=== PATIENT | female | born 1955 | race Caucasian/White ===

== ENCOUNTER 2018-07-29 20:57 | Emergency (ER) | payer MEDICARE ==
[2018-07-29 22:07] LABS: BASO % 0.4 % (0.0-1.0); EOS % 0.6 % (0.0-3.0); HEMATOCRIT 45.7 % (36.0-47.0); HEMOGLOBIN 14.9 g/dl (12.0-15.5); IMMATURE GRANULOCYTE % 0.2 % (0-3.0); LYMPH % 19.8 % (24.0-44.0); MEAN CORPUSCULAR HEMOGLOBIN 29.2 pg (27.0-33.0); MEAN CORPUSCULAR HGB CONC 32.6 g/dl (32.0-36.5); MEAN CORPUSCULAR VOLUME 89.4 fl (80.0-96.0); MONO # 0.7 10^3/uL (0.0-0.8); MONO % 13.1 % (0.0-5.0); NEUTROPHILS # 3.4 10^3/uL (1.8-7.7); NEUTROPHILS % 65.9 % (36.0-66.0); PLATELET COUNT, AUTOMATED 172 10^3/uL (150-450); RED BLOOD COUNT 5.11 10^6/uL (4.00-5.40); RED CELL DISTRIBUTION WIDTH 13.4 % (11.5-14.5); WHITE BLOOD COUNT 5.2 10^3/uL (4.0-10.0)
[2018-07-29 22:11] LABS: INR 0.96; PROTHROMBIN TIME 12.9 SECONDS (12.1-14.4)
[2018-07-29 22:25] LABS: ANION GAP 8 MEQ/L (8-16); BLOOD UREA NITROGEN 22 MG/DL (7-18); CALCIUM LEVEL 8.5 MG/DL (8.8-10.2); CARBON DIOXIDE LEVEL 29 MEQ/L (21-32); CHLORIDE LEVEL 105 MEQ/L (98-107); CK-MB VALUE MASS < 1.0 NG/ML (<3.6); CPK CREATINE PHOSPHOKINASE 77 U/L (26-192); CREATININE FOR GFR 1.44 MG/DL (0.55-1.30); GLOMERULAR FILTRATION RATE 38.9 (>45); GLUCOSE, FASTING 112 MG/DL (70-100); SODIUM LEVEL 142 MEQ/L (136-145); TROPONIN I < 0.02 NG/ML (< 0.10)
[2018-07-29] MEDS: MORPHINE 2 MG/ML 1ML SYRINGE (J2270) IV (22:30)
[2018-07-29] MEDS: NS 500 ML IV (22:30)
[2018-07-29] MEDS ORDERED: ISOVUE-370 76% 100ML VIAL (Q9967) As Ordered (23:15)
[2018-07-30 02:54] LABS: CK-MB VALUE MASS < 1.0 NG/ML (<3.6); CPK CREATINE PHOSPHOKINASE 68 U/L (26-192); MB/CK RELATIVE INDEX 1.47 (< OR =4); TROPONIN I < 0.02 NG/ML (< 0.10)
[2018-07-30] MEDS: traMADol 50 MG TAB (BULK 4 TAB ED) PO (03:45)
== END 2018-07-30 03:17 | disposition home or self-care (01) ==
LOC: M ED 07-30 03:17
DX: R07.1 Chest pain on breathing (principal); I10 Essential (primary) hypertension; I25.10 Atherosclerotic heart disease of native coronary artery without angina pectoris; E78.5 Hyperlipidemia, unspecified; G89.29 Other chronic pain; M79.661 Pain in right lower leg; Z95.5 Presence of coronary angioplasty implant and graft; Z79.899 Other long term (current) drug therapy; Z79.82 Long term (current) use of aspirin; Z88.0 Allergy status to penicillin; Z88.1 Allergy status to other antibiotic agents
CPT/HCPCS: Q9967

== ENCOUNTER → 2018-09-12 | Outpatient (CLI) | payer MEDICARE ==
[~2018-09-12] MED LIST: ASPI-156 PO; ATOR1TAB19 PO; CENT1TAB PO; E-Z-GAS II EFFERVESCENT PACKET (SODIUM BICARB./CITRIC ACID/SIMETHICONE) As Ordered ONE; E-Z-HD 98% w/w 340GM SUSP BTL As Ordered ONE; E-Z-PAQUE 96% w/w SUSP 176GM BTL As Ordered ONE; KLOR10TA76 PO; METO1TAB87 PO; PLAV1TAB2 PO; TORS20TA2 PO
--- NOTE | 2018-09-12 16:38 | REP ---
Esophagram The procedure was performed under the direct supervision of Dr. Kenyon. The images were reviewed with Dr. Kenyon. A single view PA chest x-ray is submitted as a client service representative film. The superior mediastinal structures are midline. The heart size is within normal limits. The lungs are clear. Liquid barium and gas producing granules were given in the erect position as well as liquid barium in the prone oblique positions in order to perform a double contrast esophagram examination. The oral and pharyngeal stages of deglutition are unremarkable. Esophageal transport is prompt and efficient. There is mucosal irregularity in the distal esophagus which likely represents reflux esophagitis. There is no dany ulcer identified. There is a sliding type hiatal hernia. There is gastroesophageal reflux demonstrated to the level of the thoracic inlet. Impression: 1. There is a sliding type hiatal hernia. There is gastroesophageal reflux demonstrated to the level of the thoracic inlet. 2. There is mucosal irregularity in the distal esophagus which likely represents reflux esophagitis. There is no dany ulcer identified. 0.8 minutes of fluoro time was utilized for this procedure. Reviewed by MECHE Humphries 09/12/2018 04:04 P Electronically Signed by Warren Kenyon MD 09/12/2018 04:28 P
== END ==
LOC: M RAD 10:25
PROVIDERS: ATTEND Family Medicine
DX: K44.9 Diaphragmatic hernia without obstruction or gangrene (principal); R93.3 Abnormal findings on diagnostic imaging of other parts of digestive tract; R13.10 Dysphagia, unspecified; K21.9 Gastro-esophageal reflux disease without esophagitis

== ENCOUNTER 2019-02-28 10:01 | Outpatient (RCR) | payer MEDICARE | END 2019-03-02 | disposition home or self-care (01) | LOC: M PT 10:01 | PROVIDERS: ATTEND Family Medicine | DX: R26.81 Unsteadiness on feet (principal) ==

== ENCOUNTER → 2019-02-28 | Outpatient (CLI) | payer MEDICARE ==
[~2019-02-28] MED LIST changes: -ASPI-156 PO; +ASPI81TA28 PO; -E-Z-GAS II EFFERVESCENT PACKET (SODIUM BICARB./CITRIC ACID/SIMETHICONE) As Ordered ONE; -E-Z-HD 98% w/w 340GM SUSP BTL As Ordered ONE; -E-Z-PAQUE 96% w/w SUSP 176GM BTL As Ordered ONE
--- NOTE | 2019-02-28 11:33 | REP ---
Clinical: Preoperative assessment . Comparison: None . Technique: PA and lateral. Findings: The mediastinum and cardiac silhouette are normal. The lung liriano are clear and without acute consolidation, effusion, or pneumothorax. The skeletal structures are intact and normal. Impression: 1. No acute cardiopulmonary process. Electronically Signed by Bereket Mora MD 02/28/2019 11:25 A
== END ==
LOC: M RAD 11:02
PROVIDERS: ATTEND Physician Assistant
DX: Z95.5 Presence of coronary angioplasty implant and graft (principal); I25.10 Atherosclerotic heart disease of native coronary artery without angina pectoris

== ENCOUNTER → 2019-03-18 | Outpatient (CLI) | payer MEDICARE | LOC: M LAB 11:42 | PROVIDERS: ATTEND Physician Assistant | DX: R06.02 Shortness of breath (principal) ==

== ENCOUNTER 2019-03-21 10:51 | Outpatient (RCR) | payer MEDICARE | END 2019-04-02 | LOC: M PT 10:51 | PROVIDERS: ATTEND Family Medicine | DX: Z51.89 Encounter for other specified aftercare (principal); R26.81 Unsteadiness on feet ==

== ENCOUNTER → 2019-04-07 | Outpatient (CLI) | payer MEDICARE ==
--- NOTE | 2019-04-14 10:08 | SLEEPHOME ---
DATE OF STUDY: 04/07/2019 ORDERED BY: Dr. Méndez Diagnostic home sleep testing was performed due to concern for the obstructive sleep apnea syndrome. For testing, a nocturnal T3 respiratory monitoring device was used. Continuous record was made of pulse, oxygen saturation airflow, chest and abdominal strain and body position. 10 hours and 59 minutes of data were reviewed. There were 7 hours and 42 minutes marked as time in bed. During the interval marked time in bed, there were 65 respiratory events identified of 10 seconds in duration or greater for a respiratory event index of 8.4. The events were primarily obstructive. Baseline pulse rate was 61 beats per minute, pulse rate ranged 53-70. Baseline saturation 93% and saturations fell to 83%. Testing was performed in both the supine and nonsupine positions. IMPRESSION: Abnormal home sleep testing with repetitive respiratory events and oxygen desaturations to 83% with a respiratory event index of 8.4 is consistent with the obstructive sleep apnea syndrome. RECOMMENDATION: The patient should be encouraged to undergo formal sleep evaluation.
== END ==
LOC: M SLEEP HO 10:04
PROVIDERS: ATTEND Internal Medicine Cardiovascular Disease
DX: R06.83 Snoring (principal)

== ENCOUNTER → 2019-04-15 | Outpatient (CLI) | payer MEDICARE ==
[~2019-04-15] MED LIST changes: +ANAS1TAB2 PO; +ASPI-261 PO; +ATOR1TAB21 PO; +CALC600T5 PO; +OMEP-221 PO
--- NOTE | 2019-04-17 08:30 | RADONC ---
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 STAGE: Stage TIS, N0, M0. ICD-10 CODE: D05.82. ECOG PERFORMANCE STATUS: 0. HISTORY OF PRESENT ILLNESS: The patient is a 63-year-old female who had been receiving regular mammographies up to approximately 10 to 11 years ago. The new mammogram obtained on 02/19/2019 revealed an abnormality at the 3 o'clock position of the left breast. The mammogram was followed with ultrasound and the tumor measured approximately 1 cm. On 03/24/2019 she underwent a lumpectomy in [place] by Dr. Claudette Linares. She also sampled two sentinel lymph nodes, which were negative for tumor. The tumor was noted to be a grade 3 DCIS with a cribriform pattern. It was located at the 3 o'clock position. It looked similar to the biopsy which was performed on 03/13/2019. The tumor was multifocal with an aggregate measured approximately 20 mm. The two sentinel lymph nodes evaluated were negative for metastatic disease as stated, and the primary tumor was noted to be ER positive, TX positive. Necrosis was present in one small focus and involved only once cell. The patient had some bruising from the initial biopsy and has had issues with seromas forming in the lumpectomy area. She seems fine with regards to her mastectomy healing at this time, however. She comes to us today to discuss adjuvant local regional radiotherapy. PAST MEDICAL HEALTH: She has a history of bilateral feet swelling and is on diuretics. She also has history of GERD and cardiac arterial stent placement. She has a history of psoriasis and shortness of breath. PAST SURGICAL HISTORY: section, coronary angioplasty with stent placement in 2006, partial mastectomy (see HPI), partial axillary lymphadenectomy in the past and tonsillectomy. FAMILY HISTORY OF CANCER: No remarkable family history of cancer. MEDICATIONS: - aspirin 325 mg - Atrovent statin 20 mg daily - calcium carbonate daily - metoprolol 25 mg b.i.d. - multiple vitamins - omeprazole 40 mg by mouth nightly - potassium chloride 20 mEq by mouth two times a day SOCIAL HISTORY: She is a former smoker and has a 43 pack-year history. She quit in 2017. She drinks only minimally. REVIEW OF SYSTEMS: Respiratory: The patient denies coughing, dyspnea, hemoptysis, hiccups, pleuritic or chest pain. Psychiatric: Denies delusions, hallucinations, mood swings. Neck: Denies masses, muscle weakness, pain, difficulty with range of motion, or swelling. Integumentary: She has a history of psoriasis but denies alopecia, blisters, bruising, dry skin, facial burning, problems with nails, photosensitivity, pruritus, rashes with the exception of the psoriasis or urticaria. Hematologic/lymphatic: Denies easy bruising or lymphadenopathy. Genitourinary: Denies dysuria, frequency, genital masses, hematuria, incontinence, nocturia, renal stone disease, sexual dysfunction, urgency, changes in urine color, vaginal discharge or bleeding or vaginal spotting. Gastrointestinal: Denies changes in bowel habits, constipation, diarrhea, heartburn, dyspepsia, hematemesis, hematochezia, hemorrhoids, melena, gastrointestinal bleeding, nausea, pain, cramping, early satiety or vomiting. ENT: Denies ear pain, epistaxis, esophagitis hearing loss, dry mouth, oral bleeding otitis, sinusitis, sputum production, stomatitis, alteration of taste, tinnitus. Constitutional: She has a fair appetite. Denies significant fatigue, fever. She has some off and on lethargy, but denies malaise, night sweats, rigors, chills or significant weight change. Cardiovascular: Denies significant arrhythmias, chest pain. She has occasional dyspnea. She has also edema in her lower extremities. Denies orthopnea or palpitation. Breasts: She has a history of recent partial mastectomy involving the left at the 3 o'clock position. Denies nipple inversion, pain, nipple discharge. ALLERGIES: Denies allergies or adverse reactions. PHYSICAL EXAMINATION: Vitals: O2 saturation 97% on room air. Diastolic 84, systolic 133, respirations 20, pulse 64, temperature 96.8, weight 253.4 pounds, height 60 inches. HEENT: Normocephalic. EOMs intact. PERRLA. Fundi benign. Breasts: Pendulous with no palpable masses. Lymphatics: No palpable peripheral lymphadenopathy is noted in the cervical, supraclavicular, axillary or inguinal lymph node chains. She is status post axillary sampling. Heart: Regular with a grade 2/6 systolic ejection murmur heard best at the cardiac apex. Abdomen: Without evidence of hepatomegaly, masses, deep abdominal tenderness. Extremities: Without cyanosis, significant digital clubbing or edema. Neurologic: Examination grossly physiologic and nonfocal. 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 The tumor measured an aggregate more than 20 mm and consisted of a high-grade (grade III) DCIS with a cribriform pattern and one focal cell showing necrosis. The tumor was ER and TX positive. Two sentinel lymph nodes were examined, which were negative for metastatic disease. PLAN OF RADIOTHERAPY: The patient is a candidate for adjuvant external beam radiotherapy to consist of approximately 5000 cGy to the entire breast followed by a 1000 cGy boost to the lumpectomy scar site via an energetic electron beam. Prior to treatment delivery, localization will be accomplished upon a CT simulator and treatment portals defined by the use of multiple leaf collimators. The indications, possible side effects, both acute and chronic, have been thoroughly discussed with the patient in detail. She understands and is willing to proceed as outlined. Simulation was ordered and consent obtained. Thank you for allowing us the opportunity of participation in the management of this very fine patient. Most sincerely, CC: MD Dr. Jessica Lamb Med Onc MD ANTOINE Weeks
== END ==
LOC: M ONCR 08:42
PROVIDERS: ATTEND Radiology Radiation Oncology
DX: C50.912 Malignant neoplasm of unspecified site of left female breast (principal)

== ENCOUNTER 2019-05-02 12:48 | Outpatient (RCR) | payer MEDICARE ==
[2019-04-18 14:56] LABS: HEMATOCRIT 44.6 % (36.0-47.0); HEMOGLOBIN 14.2 g/dl (12.0-15.5); LYMPH % 25.2 % (24.0-44.0); MEAN CORPUSCULAR HEMOGLOBIN 28.1 pg (27.0-33.0); MEAN CORPUSCULAR HGB CONC 31.8 g/dl (32.0-36.5); MEAN CORPUSCULAR VOLUME 88.1 fl (80.0-96.0); NEUTROPHILS # 4.5 10^3/uL (1.8-7.7); NEUTROPHILS % 64.6 % (36.0-66.0); RED BLOOD COUNT 5.06 10^6/uL (4.00-5.40)
--- NOTE | 2019-04-23 09:09 | RADONC ---
RADIATION ONCOLOGY SIMULATION NOTE DATE: 04/18/2019 CHART NUMBER: [id number] SIMULATION NOTE: The patient has a history of left breast cancer and comes today for evaluation of local regional radiotherapy simulation to treat her left breast via breast conservation radiotherapy technique. The patient was placed in a supine position and an immobilization device was fabricated in order to minimize motion during treatment. She tolerated the making of the immobilization device quite well with no significant untoward side effects. Thereafter, the patient in the treatment position underwent imaging through the breast area at 3 mm intervals and the images were captured for future contouring of both planned treatment volume as well as normal surrounding organs within the thorax so that we might be able to adequately plan this treatment most likely for IMRT. I was there during the entire course of the simulation. She tolerated the entire procedure and she was able to return to her place of residence after the completion of the simulation process.
[2019-06-02] MEDS ORDERED: SILV40CR EXT (10:32)
== END 2019-05-03 ==
LOC: M ONCR 12:48
PROVIDERS: ATTEND Radiology Radiation Oncology
DX: D05.82 Other specified type of carcinoma in situ of left breast (principal)

== ENCOUNTER → 2019-06-02 | Outpatient (RCR) | payer MEDICARE ==
--- NOTE | 2019-05-07 09:33 | RADONC ---
RADIATION ONCOLOGY PROGRESS NOTE DATE: 05/06/2019 CHART NUMBER: [id number] PROGRESS NOTE: Mrs. Mcdonald with left breast cancer is currently receiving local regional radiotherapy and she has achieved a dose thus far of 720 cGy for proposed dose of 4860 cGy. She denies any issues related to her disease or to her treatments. She specifically denies any nausea, vomiting, coughing, sputum production or hemoptysis. Her energy level is adequate and she is able to maintain most day-to-day activities without any alteration of her lifestyle. Skin irritation is not reported. EXAMINATION FINDINGS: The skin within the irradiated volume shows neither erythema nor desquamation. No masses are palpable on either breast. Lymphatics without palpable lymphadenopathy. Lungs are clear. The remainder of the physical examination is unchanged. IMPRESSION: Tolerating therapy well. PLAN: Treatments to continue. MTDD
--- NOTE | 2019-05-07 09:38 | RADONC ---
RADIATION ONCOLOGY PROGRESS NOTE AND SIMULATION ELECTRON BEAM SIMULATION DATE OF SERVICE: 05/06/2019 FOLLOWUP NOTE: Mrs. Mcdonald with a diagnosis of left breast cancer was seen today on the table because of issues of skin irritation. She had been placed on a several-day rest because of increasing skin reactions. Today when a saw her on the table, I did notice erythema but no dany desquamation and no significant areas of either focal or confluent desquamation or what appears to be impending desquamation. In fact, there are small islands of re-epithelialization in the irradiated area which would indicate that the skin is healing. Her current dose of radiotherapy is 4320 cGy of a proposed 4860 cGy. She is being treated to the chest wall and peripheral lymphatics. She denies any nausea, vomiting, coughing, sputum production, or hemoptysis. Her energy level is such that she is able to maintain most day-to-day activities. EXAMINATION FINDINGS: As stated, there are focal islands of re-epithelialization and healing. The remainder of the physical examination is unchanged. RADIATION ONCOLOGY SIMULATION NOTE ELECTRON BEAM BOOST SETUP: The patient was placed in a supine position, and the area to be treated with the energetic electron beam was marked by me. I was there during the entire time of the simulation. The patient was already in her treatment position. The therapist then confirmed the markings and will be fabricating a special electron beam cutout to encompass the field which was marked by me, and this area will receive the electron beam boost treatment. The procedure was tolerated quite well, and the patient was sent home after completion of her electron beam setup.
--- NOTE | 2019-05-12 11:15 | RADONC ---
RADIATION ONCOLOGY PROGRESS NOTE DATE: 05/12/2019 CHART NUMBER: [id number] PROGRESS NOTE: Mrs. Mcdonald with the diagnosis of left breast carcinoma in situ is currently receiving local regional radiotherapy via IMRT. Her current dose is 1440 cGy of an anticipated 4860 centigrade. She is tolerating her radiotherapy quite well and denies any nausea, vomiting, coughing, sputum production or hemoptysis. Her energy level is such that she is able to maintain most of her day-to-day activities without any alteration of her lifestyle. Skin irritation is not an issue for her. The remainder of the review of systems is unchanged. EXAMINATION FINDINGS: Skin within the irradiated volume shows neither erythema nor desquamation. Lymphatics: No palpable peripheral lymphadenopathy is appreciated. Lungs: Clear. Heart: Regular without murmurs. Abdomen: Without evidence of hepatomegaly, masses, deep abdominal tenderness. The remainder of the physical examination is unchanged. IMPRESSION: Tolerating therapy well. PLAN: Treatments to continue.
--- NOTE | 2019-05-21 12:55 | RADONC ---
RADIATION ONCOLOGY PROGRESS NOTE DATE: 05/19/2019 CHART #: [id number] Ms. Mcdonald is presently at a dose of 2340 cGy to her left breast and is tolerating treatments quite well at this point with no complaints related to radiation therapy. She is having no breast or bone pain. REVIEW OF SYSTEMS: The patient's review of systems is noncontributory. Denies nausea, vomiting, fevers, chills, night sweats, diplopia, headaches, anxiety or depression, anorexia, weight loss, visual disturbances, chest pain, urinary or bowel difficulties, bone pain, or neurological problems. PHYSICAL EXAMINATION: The patient's skin is in excellent condition with no evidence of moist or dry desquamation. The remainder of her physical exam remains unchanged. Ms. Mcdonald is tolerating treatments quite well and radiation will continue as scheduled.
--- NOTE | 2019-05-27 12:23 | RADONC ---
RADIATION ONCOLOGY PROGRESS NOTE DATE: 05/26/2019 CHART NUMBER: [id number] Ms. Mcdonald is presently at a dose of 3240 cGy to her left breast and is tolerating treatments quite well at this point with no complaints related to her radiation therapy. She having no breast or bone pain. The patient's review of systems is noncontributory. She denies nausea, vomiting, fevers, chills, night sweats, diplopia, headaches, anxiety or depression, anorexia, weight loss, visual disturbances, chest pain, urinary or bowel difficulties, bone pain, or neurological problems. PHYSICAL EXAMINATION: The patient's skin is in good condition with no evidence of moist or dry desquamation. There is some erythema in the axillary region present. The remainder of the physical exam remains unchanged. Ms. Mcdonald is tolerating treatments quite well and radiation will continue as scheduled.
--- NOTE | 2019-05-29 11:11 | RADONC ---
RADIATION ONCOLOGY SIMULATION NOTE DATE OF SERVICE: 05/28/2019 CHART NUMBER: [id number]. SIMULATION NOTE: Ms. Mcdonald was taken to the linear accelerator today for clinical setup of her electron beam boost field. Setup was accomplished without difficulty or discomfort. Radiation treatment planning is underway, and radiation treatments will begin subsequently. An immobilization device was created and will be used throughout the course of treatment. It was created without difficulty or discomfort. I was physically present throughout the course of clinical setup simulation.
[~2019-06-02] MED LIST changes: +SILV40CR EXT
--- NOTE | 2019-06-02 13:30 | RADONC ---
RADIATION ONCOLOGY PROGRESS NOTE DATE: 06/02/2019 CHART #: [id number] Ms. Mcdonald is presently at a dose of 4140 cGy to her left breast and is tolerating treatments quite well at this point with no significant difficulties related to her radiation therapy other than some skin discomfort and fatigue. REVIEW OF SYSTEMS: The patient's review of systems is positive for some fatigue and skin discomfort but is otherwise noncontributory. Denies nausea, vomiting, fevers, chills, night sweats, diplopia, headaches, anxiety or depression, anorexia, weight loss, visual disturbances, chest pain, urinary or bowel difficulties, bone pain, or neurological problems. PHYSICAL EXAMINATION: The patient's skin shows erythema and tanning present as well as a small area of desquamation in the inframammary region, but is otherwise in generally good condition. The remainder of her physical exam remains unchanged. Ms. Mcdonald is tolerating her treatments quite well and radiation will continue as scheduled. She has been given a prescription for Silvadene.
== END ==
LOC: M ONCR 05-06 12:51
PROVIDERS: ATTEND Radiology Radiation Oncology
DX: D05.82 Other specified type of carcinoma in situ of left breast (principal)

== ENCOUNTER 2019-06-16 09:47 | Outpatient (RCR) | payer MEDICARE ==
--- NOTE | 2019-06-09 11:17 | RADONC ---
RADIATION ONCOLOGY PROGRESS NOTE DATE: 06/09/2019 CHART NUMBER: [id number] PROGRESS NOTE: Ms. Mcdonald is presently at a dose of 5060 cGy to her left breast primary site and is tolerating treatments fairly well except for fatigue. REVIEW OF SYSTEMS; The patient's review of systems is positive for fatigue and some breast discomfort but is otherwise generally noncontributory. Denies nausea, vomiting, fevers, chills, night sweats, diplopia, headaches, anxiety or depression, anorexia, weight loss, visual disturbances, chest pain, urinary or bowel difficulties, bone pain, or neurological problems. PHYSICAL EXAMINATION: The patient's skin shows erythema and tanning present. There is some small areas of moist desquamation in the inframammary region and axillary areas but those areas have completed therapy. The remainder of her physical exam remains unchanged. Ms. Mcdonald is tolerating her treatments with fatigue but overall is doing generally well. I explained to her that she will have another week or so of some skin discomfort but then that should be improving. In addition, her fatigue over time will improve. The patient does have a cardiac history and is scheduled to see her sharebroker next week. I have reviewed her blood work and she has no evidence of anemia. She reports no bleeding or other reasons for anemia. She did not have any chemotherapy. Since she is being seen by Dr. Méndez next week, I have not ordered any more tests at this time.
--- NOTE | 2019-06-16 15:52 | RADONC ---
RADIATION ONCOLOGY TREATMENT SUMMARY DATE: 06/16/2019 CHART NUMBER: [id number] DIAGNOSIS: Left breast cancer. STAGE: 0, [id number]. ECOG PERFORMANCE STATUS: 0 TREATMENT SUMMARY: Ms. Mcdonald is a delightful, 63-year-old white female with the diagnosis of a stage 0, [id number] ductal carcinoma in situ of the left breast who presented to us status post lumpectomy and sentinel lymph node biopsy for consideration of postoperative radiation therapy for conservative breast management. We treated the patient to the left breast for a total dose of 4860 cGy delivered in 27 fractions of 180 cGy each over 37 elapsed days from 04/30/2019 through 06/06/2019. The patient's left breast was treated on the linear accelerator utilizing a 6 MV photon beam via medial lateral tangential liriano utilizing a 3-D conformal technique. Following completion of 4860 cGy of the entire left breast, the primary site was boosted for an additional 1200 cGy delivered in 6 fractions of 200 cGy each over seven elapsed days from 06/09/2019 through 06/16/2019. The patient's primary site boost was treated on the linear accelerator utilizing a 12 MeV electron beam prescribed to the 90% isodose line via non phos technique. This brought the primary site to a total dose of 6060 cGy delivered in 33 fractions over 44 elapsed days from 04/30/2019 through 06/16/2019. Ms. Mcdonald tolerated her treatments quite well and was able to complete therapy as prescribed without interruption. She did have fatigue throughout the course of treatment but overall did well. I have scheduled the patient to see me again in 1 month for further followup. She will also continue to be followed by her other physicians as well. Thank you for allowing us to participate in the care of this very pleasant woman. If I could be of any further assistance or provide you with any information, please feel free to contact me anytime. As always, warm regards. cc: MD Claudette Shrestha MD Anna Shapiro, MD
[2019-06-20] MEDS ORDERED: MECL-86 PO (06:37)
== END 2019-07-03 ==
LOC: M ONCR 09:47
PROVIDERS: ATTEND Radiology Radiation Oncology
DX: D05.82 Other specified type of carcinoma in situ of left breast (principal)

== ENCOUNTER 2019-06-20 01:36 | Emergency (ER) | payer MEDICARE ==
[~2019-06-20] VITALS: Ht 152.4 cm; Wt 113.6 kg
--- NOTE | 2019-06-20 02:37 | REPVR ---
PROCEDURE INFORMATION: Exam: CT Head Without Contrast Exam date and time: 06/20/2019 2:09 AM Clinical history: 63 years old, female; Dizziness; Additional info: Dizzy TECHNIQUE: Imaging protocol: Computed tomography of the head without contrast. Radiation optimization: All CT scans at this facility use at least one of these dose optimization techniques: automated exposure control; mA and/or kV adjustment per patient size (includes targeted exams where dose is matched to clinical indication); or iterative reconstruction. COMPARISON: No relevant prior studies available. FINDINGS: Brain: There is minimal patchy low attenuation of deep white matter. There is slight prominence of the peripheral sulci. Ventricles: There is slight prominence of the central ventricular system. Bones/joints: Unremarkable. No acute fracture. Sinuses: Visualized sinuses are unremarkable. No fluid levels. Mastoid air cells: Visualized mastoid air cells are well aerated. Soft tissues: Unremarkable. IMPRESSION: 1. Minimal chronic ischemic white matter change and atrophy. 2. Otherwise negative noncontrast head CT. Electronically signed by: Brijesh West On 06/20/2019 02:36:38 AM
[2019-06-20] MEDS ORDERED: MECLIZINE 25 MG TABLET PO ONE (02:45)
[2019-06-20 03:06] LABS: HEMATOCRIT 42.2 % (36.0-47.0); HEMOGLOBIN 13.5 g/dl (12.0-15.5); MEAN CORPUSCULAR HEMOGLOBIN 28.2 pg (27.0-33.0); MEAN CORPUSCULAR VOLUME 88.1 fl (80.0-96.0); PLATELET COUNT, AUTOMATED 166 10^3/uL (150-450); RED BLOOD COUNT 4.79 10^6/uL (4.00-5.40); WHITE BLOOD COUNT 5.8 10^3/uL (4.0-10.0)
[2019-06-20 03:30] LABS: BLOOD UREA NITROGEN 20 MG/DL (7-18); CALCIUM LEVEL 8.6 MG/DL (8.8-10.2); CARBON DIOXIDE LEVEL 30 MEQ/L (21-32); CHLORIDE LEVEL 111 MEQ/L (98-107); CK-MB VALUE MASS < 1.0 NG/ML (<3.6); CPK CREATINE PHOSPHOKINASE 49 U/L (26-192); CREATININE FOR GFR 1.33 MG/DL (0.55-1.30); GLOMERULAR FILTRATION RATE 42.6 (>45); GLUCOSE, FASTING 121 MG/DL (70-100); MB/CK RELATIVE INDEX 2.04 (< OR =4); POTASSIUM SERUM 4.2 MEQ/L (3.5-5.1); SODIUM LEVEL 145 MEQ/L (136-145); TROPONIN I < 0.02 NG/ML (< 0.10)
[2019-06-20 05:03] VITALS: O2SAT 95
[2019-06-20 05:52] LABS: CPK CREATINE PHOSPHOKINASE 46 U/L (26-192); MB/CK RELATIVE INDEX 2.17 (< OR =4); TROPONIN I < 0.02 NG/ML (< 0.10)
[2019-06-20] MEDS ORDERED: MECL-86 PO (06:37)
[2019-06-20 07:35] VITALS: BP 140/65
--- NOTE | 2019-06-20 19:58 | ECGEPIP ---
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
--- NOTE | 2019-06-20 20:01 | ECGEPIP ---
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
== END 2019-06-20 07:46 | disposition home or self-care (01) ==
LOC: M ED 01:36
DX: H83.09 Labyrinthitis, unspecified ear (principal); Z88.0 Allergy status to penicillin; Z88.1 Allergy status to other antibiotic agents; Z79.82 Long term (current) use of aspirin; Z79.899 Other long term (current) drug therapy

== ENCOUNTER → 2019-07-23 | Outpatient (CLI) | payer MEDICARE ==
[~2019-07-23] MED LIST changes: +MECL-86 PO
--- NOTE | 2019-07-25 08:57 | RADONC ---
RADIATION ONCOLOGY FOLLOWUP NOTE DATE: 07/23/2019 CHART NUMBER: [id number] DIAGNOSIS: Left breast cancer. STAGE: 0, [id number] ECOG PERFORMANCE STATUS: 0 FOLLOW-UP NOTE: Ms. 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 The patient presents today reporting that she is doing extremely well with no complaints at this time related to her radiation therapy or disease. She has no breast or bone pain. REVIEW OF SYSTEMS: The patient's review of systems is noncontributory. She denies nausea, vomiting, fevers, chills, night sweats, diplopia, headaches, anxiety or depression, anorexia, weight loss, visual disturbances, chest pain, urinary or bowel difficulties, bone pain, or neurological problems. PHYSICAL EXAMINATION: The patient is a well-developed, well-nourished white female in no acute distress. HEENT exam is normocephalic, atraumatic. Extraocular movements are intact. There is no palpable cervical, supraclavicular, infraclavicular, axillary, or inguinal lymphadenopathy present. Lungs are clear to auscultation and percussion. Heart has a regular rate and rhythm. Abdomen is benign with no hepatosplenomegaly, masses, or tenderness. Breast examination reveals no masses or discharge bilaterally. Skeletal examination reveals no tenderness to pressure or percussion of the bony skeleton. Extremities reveal no clubbing, cyanosis, or edema. Neurologic exam is grossly intact, as is the remainder of the physical examination. ASSESSMENT: The patient is clinically AMALIA at this time. She reports that she is being followed and managed closely by her surgeon Dr. Claudette Linares MD as well as her medical oncologist, Dr. Indiana Browne MD and her other physicians. In light of this I am discharging her at this time except on a p.r.n. basis. She is scheduled for a mammogram in [place] with Dr. Linares. cc: Taz Méndez MD, [facility] MD Claudette Shrestha MD Sara McGee, MD Anna Shapiro, MD
== END ==
LOC: M ONCR 10:30
PROVIDERS: ATTEND Radiology Radiation Oncology
DX: Z08 Encounter for follow-up examination after completed treatment for malignant neoplasm (principal); D05.82 Other specified type of carcinoma in situ of left breast

== ENCOUNTER 2019-10-06 20:17 | Inpatient (IN) | payer MEDICARE ==
[~2019-10-06] VITALS: Ht 154.9 cm; Wt 110.3 kg
[2019-10-06 21:06] LABS: VENOUS BASE EXCESS -1.4 (-2.0-2.0); VENOUS HCO3 22.8 MEQ/L (23.0-27.0); VENOUS O2 SATURATION 81.5 % (60.0-80.0); VENOUS PARTIAL PRESSURE CO2 36.4 mmHg (38.0-50.0); VENOUS PARTIAL PRESSURE O2 44.1 mmHg (30.0-50.0); VENOUS PH 7.414 UNITS (7.330-7.430); VENOUS TOTAL CO2 23.9 MEQ/L (24.0-28.0)
[2019-10-06 21:11] LABS: BASO % 0.1 % (0.0-1.0); EOS % 0.1 % (0.0-3.0); HEMATOCRIT 39.9 % (36.0-47.0); HEMOGLOBIN 12.8 g/dl (12.0-15.5); LYMPH # 0.6 10^3/uL (1.5-5.0); LYMPH % 7.2 % (24.0-44.0); MEAN CORPUSCULAR HEMOGLOBIN 28.3 pg (27.0-33.0); MEAN CORPUSCULAR HGB CONC 32.1 g/dl (32.0-36.5); MEAN CORPUSCULAR VOLUME 88.1 fl (80.0-96.0); MONO % 11.6 % (0.0-5.0); NEUTROPHILS # 6.8 10^3/uL (1.5-8.5); NEUTROPHILS % 80.8 % (36.0-66.0); PLATELET COUNT, AUTOMATED 145 10^3/uL (150-450); RED BLOOD COUNT 4.53 10^6/uL (4.00-5.40); WHITE BLOOD COUNT 8.4 10^3/uL (4.0-10.0)
[2019-10-06 21:42] LABS: ALT/SGPT 23 U/L (12-78); BILIRUBIN,DIRECT 0.2 MG/DL (0.0-0.2); BILIRUBIN,TOTAL 0.5 MG/DL (0.2-1.0); CPK CREATINE PHOSPHOKINASE 81 U/L (26-192); MB/CK RELATIVE INDEX 1.23 (< OR =4)
[2019-10-06 21:43] LABS: ALBUMIN 3.2 GM/DL (3.2-5.2); NT-PRO BNP 1317 PG/ML (<125); THYROXINE (T4) 12.5 UG/DL (4.5-12.0); TOTAL PROTEIN 6.6 GM/DL (6.4-8.2); TROPONIN I < 0.02 NG/ML (< 0.10)
--- NOTE | 2019-10-06 22:13 | REPVR ---
PROCEDURE INFORMATION: Exam: US Duplex Right Lower Extremity Veins, Limited Exam date and time: 10/06/2019 9:53 PM Age: 64 years old Clinical indication: Edema, localized; Lower extremity, right; Additional info: Swelling to right leg TECHNIQUE: Imaging protocol: Real-time Duplex ultrasound of the Right Lower Extremity with 2-D howell scale, color Doppler flow and spectral waveform analysis with image documentation. Limited exam was focused on the right lower extremity veins. COMPARISON: US Duplex, Ext,LOWER veins,unilat 07/29/2018 10:39 PM FINDINGS: Right deep veins: Unremarkable. The common femoral, femoral, proximal profunda femoral and popliteal veins are patent without thrombus. Normal Doppler waveforms. Normal compressibility and/or augmentation response. Right superficial veins: Unremarkable. Saphenofemoral junction is patent without thrombus. Soft tissues: Soft tissue edema right leg. Lymph nodes: Prominent right inguinal lymph node measures 3 x 1.7 x 2.7 cm. IMPRESSION: 1. Prominent right inguinal lymph node measures 3 x 1.7 x 2.7 cm. 2. Soft tissue edema right leg. No DVT. Electronically signed by: Dmitry Rose On 10/06/2019 22:13:15 PM
[2019-10-06] MEDS ORDERED: VANCOMYCIN HCL 750 MG, VIAL MATE ADAPTER 1 EACH in D5W 250 ML IV ONE (23:30)
[2019-10-06] MEDS ORDERED: IMIPENEM/CILASTATIN 250 MG in D5W MINI-BAG PLUS 100 ML IV ONE (23:30)
[2019-10-06] MEDS ORDERED: MOM 30ML SUSPENSION UDC PO PRN (23:45)
[2019-10-06] MEDS ORDERED: MAALOX 30 ML SUSP *UDC PO PRN (23:45)
--- NOTE | 2019-10-06 23:47 | HPEPDOC ---
[facility] Medical History & Physical Date of Admission Oct 06, 2019 Date of Service: Oct 06, 2019 Primary Care Physician: Chad Milian MD Attending Physician: FREDDIE HORAN MD History and Physical TIME OF SERVICE: 11:52 PM CHIEF COMPLAINT:, Redness of the leg HISTORY OF PRESENT ILLNESS: This is a 64 old female who presents with complaints of 2 day in duration, right lower extremity swelling. Today the leg became more red, swollen and warm and was painful when she tried to walk, therefore she decided come to the hospital for evaluation. Of note, she had a fever on Sunday, Sunday and Sunday and thought that it may be due to flu. She denies having nausea or vomiting. She alcantara s had several episodes of cellulitis in the past and has psoriatic skin lesions, mostly at the elbows, but she also developed a red rash similar to the psoriatic rash on her right lower leg. REVIEW OF SYSTEMS: 12 point review of systems negative except as listed in HPI PAST MEDICAL/ SURGICAL HISTORY: History of left-sided breast carcinoma in situ CAD status post stent placement Per patient CHF Psoriasis Based on on a home sleep study she has CURT, but the patient denies this diagnosis Unsteady gait she uses a cane Impaired memory per patient's daughter SOCIAL HISTORY: She quit smoking several years ago FAMILY HISTORY: CVA Alzheimer's ALLERGIES: Please see below. HOME MEDICATIONS: Please see below. PHYSICAL EXAMINATION: VITAL SIGNS: Please see below. GEN: Obese INTEGUMENT: Is rubor, dolor, calor at the right lower leg extending to the foot/ are macerated areas of skin at the right lower leg and foot HEENT: NCAT/mucus membranes moist and pink CVS: RRR/NMRG LUNGS: clear to auscultation bilaterally on room air ABDOMEN: soft & not tender with palpation MSK/EXTREMITIES: range of motion intact in all 4 extremities NEURO: CN 2-12 are grossly intact / speech is not dysarthric PSYCH: alert and oriented / able to understand and follow all commands LABORATORY DATA: See below. IMAGING: Right lower extremity venous duplex was negative for DVT Chest x-ray shows poor inspiratory effort, but the final read is pending MICROBIOLOGY: Please see below. ASSESSMENT: Ms. Mcdonald is a 64 old female with a history of left sided breast carcinoma in situ CAD, unspecified type of CHF and psoriasis who is admitted for evaluation of right lower extremity pain and swelling, possibly due to cellulitis. PLAN: 1. Right lower extremity pain and swelling, possibly due to cellulitis She may also have superimposed psoriasis. She since she does not have an elevated WBC count, or tachycardia her ALT-70 Score to diagnose LE Cellulitis is only 3 and an ID or Dermatology consult is a ppropriate to assist in evaluation identify alternative etiologies. Plan: Admit to medical floor/fall precautions/elevate leg / f/u ESR, CRP & blood cx / PT eval to determine if she needs to be upgraded from a cane to walk/ continue with Vancomycin /despite elevated lactic acid. I will not give I VF was because her BNP is elevated/ the daytime team and consider consulting dermatology to determine if she is for phototherapy or methotrexate or other therapy such as cyclosporine for the psoriasis 2. History of left-sided breast carcinoma in situ - Plan: Continue anastrozole 3. CAD - Plan: Continue aspirin, atorvastatin and metoprolol 4. Unknown type of CHF. Her BNP is elevated. I'm unable to find an echo in the system. - Plan: Continue torsemide 5. Morbid Obesity with a BMI of 47.1. This complicates care - Plan: Follow-up A1c/she can f/u w her PCP for STOP BANG questionnaire, client service professional consult & referral for Bariatric Surgeon DVT PROPHYLAXIS: Lovenox DISPOSITION: Home after more than 2 midnight's stay Vital Signs Vital Signs Date Time Temp Pulse Resp B/P (MAP) Pulse Ox O2 Delivery O2 Flow Rate FiO2 10/06/19 20:45 81 18 130/79 (96) 99 Room Air 10/06/19 20:31 99.5 Laboratory Data Labs 24H Laboratory Tests 2 10/06/19 20:57: Immature Granulocyte % (Auto) 0.2, Neutrophils (%) (Auto) 80.8H, Lymphocytes (%) (Auto) 7.2L, Monocytes (%) (Auto) 11.6H, Eosinophils (%) (Auto) 0.1, Basophils (%) (Auto) 0.1, Neutrophils # (Auto) 6.8, Lymphocytes # (Auto) 0.6L, Monocytes # (Auto) 1.0H, Eosinophils # (Auto) 0.0, Basophils # (Auto) 0.0, Nucleated Red Blood Cells % (auto) 0.0, Blood Gas Bicarbonate Standard 23.0, Venous Blood pH 7.414, Venous Blood Partial Pressure CO2 36.4L, Venous Blood Partial Pressure O2 44.1, Venous Blood Total Carbon Dioxide 23.9L, Venous Blood HCO3 22.8L, Venous Blood Oxygen Saturation 81.5H, Venous Blood Base Excess -1.4, Lactic Acid Level 2.2*H, Total Bilirubin 0.5, Direct Bilirubin 0.2, Aspartate Amino Transf (AST/SGOT) 24, Alanine Aminotransferase (ALT/SGPT) 23, Alkaline Phosphatase 69, Total Creatine Kinase 81, Creatine Kinase MB 1.0, Creatine Kinase MB Relative Index 1.23, Troponin I < 0.02, EX-Irr-L-Type Natriuretic Peptide 1317H, Total Protein 6.6, Albumin 3.2, Albumin/Globulin Ratio 0.94L, Thyroid Stimulating Hormone (TSH) 3.270, Thyroxine (T4) 12.5H 10/06/19 22:01: POC Glucose (Misc Panel) 108H, POC Sodium (Misc Panel) 137, POC Potassium (Misc Panel) 4.0, POC Chloride (Misc Panel) 101, POC Total CO2 (Misc Panel) 28.0H, POC Blood Urea Nitrogen (Misc Panel 23, POC Ionized Calcium (Misc Panel) 4.4L, POC Creatinine (Misc Panel) 1.6H, POC Hematocrit (Misc Panel) 39.0 CBC/BMP Laboratory Tests 10/06/19 20:57 Microbiology Microbiology 10/06/19 Blood Culture, Received Pending Home Medications Scheduled Anastrozole (Anastrozole) 1 Mg Tablet, 1 TAB PO DAILY Aspirin (Aspirin EC) 325 Mg Tablet.dr, 325 MG PO DAILY Atorvastatin Calcium (Atorvastatin Calcium) 20 Mg Tablet, 20 MG PO QPM TAKES AROUND 1900: AFTER DINNER Calcium Carbonate/Vitamin D3 (Calcium 600 + Vit D Tablet) 1 Each Tablet, 2 TAB PO QPM TAKES AROUND 1900: AFTER DINNER Metoprolol Tartrate (Metoprolol Tartrate) 25 Mg Tablet, 25 MG PO BID Multivitamins (Thera M Plus Tablet) 1 Each Tablet, 1 TAB PO DAILY Omeprazole (Omeprazole) 40 Mg Capsule.dr, 40 MG PO QPM TAKES AROUND 1900: AFTER DINNER Potassium Chloride (Potassium Chloride) 10 Meq Tab.er.prt, 20 MEQ PO DAILY Torsemide (Torsemide) 20 Mg Tablet, 20 MG PO DAILY Allergies Coded Allergies: Cephalosporins (Verified Allergy, Unknown, 10/18/19) swelling Penicillins (Verified Allergy, Unknown, 06/20/19) ciprofloxacin (Verified Allergy, Unknown, 06/20/19) swelling A-FIB/CHADSVASC A-FIB History Current/History of A-Fib/PAF?: No Current PO Anticoag Therapy: No FREDDIE HORAN MD Oct 06, 2019 23:47
[2019-10-07] MEDS ORDERED: ASPI325T41 PO (00:30)
[2019-10-07] MEDS ORDERED: TORS20TA2 PO (00:30)
[2019-10-07] MEDS ORDERED: METO25TA4 PO (00:30)
[2019-10-07] MEDS ORDERED: CALC600T66 PO (00:30)
[2019-10-07] MEDS ORDERED: ATOR1TAB21 PO (00:30)
[2019-10-07] MEDS ORDERED: VITMTA PO (00:30)
[2019-10-07] MEDS ORDERED: POTA10TA17 PO (00:30)
[2019-10-07 01:30] VITALS: BP 84/48
[2019-10-07 01:35] VITALS: BP 138/78
[2019-10-07] MEDS ORDERED: VANCOMYCIN HCL 750 MG, VIAL MATE ADAPTER 1 EACH in D5W 250 ML IV ONE ×2 (02:00→03:00)
[2019-10-07 03:27] LABS: HEMATOCRIT 37.8 % (36.0-47.0); HEMOGLOBIN 11.8 g/dl (12.0-15.5); MEAN CORPUSCULAR HEMOGLOBIN 27.8 pg (27.0-33.0); MEAN CORPUSCULAR HGB CONC 31.2 g/dl (32.0-36.5); MEAN CORPUSCULAR VOLUME 88.9 fl (80.0-96.0); PLATELET COUNT, AUTOMATED 136 10^3/uL (150-450); RED BLOOD COUNT 4.25 10^6/uL (4.00-5.40); WHITE BLOOD COUNT 8.3 10^3/uL (4.0-10.0)
[2019-10-07 03:42] LABS: CALCIUM LEVEL 8.2 MG/DL (8.8-10.2); CREATININE FOR GFR 1.31 MG/DL (0.55-1.30); GLOMERULAR FILTRATION RATE 43.2 (>45); POTASSIUM SERUM 3.8 MEQ/L (3.5-5.1)
[2019-10-07 04:12] LABS: ERYTHROCYTE SEDIMENTATION RATE 56 mm/hr (0-30)
--- NOTE | 2019-10-07 04:40 | PHACANCOPD ---
PHARMACY VANCOMYCIN DOSING Pt Demographics Demographics Patient Age:64 , Weight:113.000 , Gender: female Adjusted Body Weight Date: 10/07/19, Adjusted Body Weight: [73.95] Kg Events Past 24 Hours Events Past 24 Hours: YES: Fever Vancomycin Vancomycin indication: CELLULITIS RT.LOWER LEG Vancomycin Target Ranges: 15-20 mcg/ml Vancomycin Load Y/N: Yes Load Dose Date Time Vancomycin Load Dose: 1.5GM Date: 10/07 Time: 2-4 AM Vancomycin Dose Date: 10/07/19. Current Vancomycin Dose: [1 GM Q18H] Intermittent Dosing?: No Labs Micro Microbiology 10/07/19 Blood Culture, Received Pending 10/06/19 Blood Culture, Received Pending Creatinine Clearance Date:10/07/19. Creatinine Clearance: [40.4].CALCULATED Assessment and Plan Maintaining Current Dose?: Yes Reason for dose change: No Dose Change Pharmacist Note Pharmacist Note Date: 10/07/19. Pharmacist note:64YOF admitted w/ Rt.lower leg swelling which has persisted for the past 3 days. Patient HT:61",WT:113.18 kg(abw= 73.95 kg.)SCR:1.6, CRCL;40.4(Calculated) Allergies: Penicillin,Cephalosporins,Ciprofloxacin..Admitting QMP ordered Pharmacy dosed Vancomycin. Vancomycin 1.5gm loading dose administered between 2 & 4:00, then will begin a regimen of 1 gram IV Q18 hours @22:00 this evening. First trough is scheduled for 2@15:00(prior to the 3rd dose.-Will continue to follow labs and make regimen adjustments as needed.. CHRISTINA CARTER PHARMACY Oct 07, 2019 04:40
[2019-10-07 06:00] VITALS: BP 114/72
--- NOTE | 2019-10-07 07:27 | REP ---
Portable chest, 08:57 p.m., single AP view with the patient upright: Comparison is the PA and lateral chest dated 02/28/2010. The lung liriano are clear. The cardiac size is normal. The jak, mediastinum, and skeletal structures are unremarkable. Impression: Negative portable chest. There is no interval change. Electronically Signed by Lino Colon MD 10/07/2019 07:19 A
[2019-10-07] MEDS: ENOXAPARIN 40 MG/0.4 ML SYRINGE (J1650) SC SCH (08:33)
[2019-10-07] MEDS: CALCIUM CARBONATE 500 MG CHEW U/D PO SCH ×3 (08:33→22:04)
[2019-10-07] MEDS: DOCUSATE SODIUM 100 MG CAP PO SCH ×2 (08:33→21:00)
[2019-10-07] MEDS: POTASSIUM CHLORIDE 10 MEQ SR TABLET PO SCH (08:34)
[2019-10-07] MEDS: TORSEMIDE 20 MG TAB PO SCH (08:35)
[2019-10-07] MEDS: METOPROLOL TART 25 MG TABLET PO SCH ×2 (08:36→22:09)
[2019-10-07 14:00] VITALS: BP 132/71
[2019-10-07] MEDS: ACETAMINOPHEN TAB 650MG DOSE (2X325MG) PO PRN ×2 (14:49→22:11)
[2019-10-07] MEDS: ANASTROZOLE 1MG TABLET (PATIENT'S OWN MED) PO SCH (14:50)
[2019-10-07] MEDS ORDERED: POTASSIUM CHLORIDE 10 MEQ SR TABLET PO ONE (15:30)
[2019-10-07] MEDS ORDERED: FUROSEMIDE 40 MG/4 ML VIAL (J1940) IV ONE (15:30)
--- NOTE | 2019-10-07 15:31 | IPNPDOC ---
Date Seen The patient was seen on 10/07/19. Progress Note SUBJECTIVE: 64-year-old female with past medical history of breast cancer, status post resection, coronary artery disease status post stent placement, CHF, and psoriasis is admitted for right lower extremity cellulitis. Patient reports history of recurrent cellulitis, last episode was over a year ago, reports symptoms started a few days ago with swelling, redness of right lower extremity, lotion or Dopplers negative for DVT. Patient has been treated with IV antibiotics, seen in the morning, no complains overnight, no new complaints at this time. She denies any shortness of breath, chest pain, nausea, vomiting, abdominal pain or diarrhea. 10 point review of system is negative except for above PHYSICAL EXAMINATION: VITAL SIGNS: Please see below. GENERAL: Morbidly obese HEENT: Normocephalic, atraumatic, moist mucous membranes NECK: Supple CARDIOVASCULAR EXAMINATION: S1, S2, no murmurs RESPIRATORY EXAMINATION: Diminished/distant breath sounds, scattered rhonchi, no wheezing ABDOMINAL EXAMINATION: Soft, nontender, nondistended, positive bowel sounds EXTREMITIES: Right lower extremity edema with erythema extending from ankle up to knee, warm and tender to palpation SKIN: As above NEUROLOGICAL EXAMINATION: Alert and oriented 3, no focal deficits PSYCHIATRIC EXAMINATION: Calm and cooperative LABORATORY DATA, IMAGING STUDIES, MICROBIOLOGY: Please see below. DVT prophylaxis ordered?: Yes ASSESSMENT AND PLAN: 64-year-old female with multiple medical comorbidities is admitted for right lower extremity cellulitis. PROBLEMS: 1. Right lower extremity cellulitis: Lower extremity Doppler negative for DVT, continue vancomycin, will monitor for clinical improvement, gave Lasix 40 mg IV 1 for edema. 2. CHF: Continued torsemide 20 mg daily with potassium supplementation. 3. Coronary artery disease: Status post stent placement, continue optimal medical management with aspirin, statin and beta elijah. DVT prophylaxis: Lovenox. GI prophylaxis: Not needed VS, I&O, 24H, Fishbone Vital Signs/I&O Vital Signs Date Time Temp Pulse Resp B/P (MAP) Pulse Ox O2 Delivery O2 Flow Rate FiO2 10/07/19 14:00 98.7 82 20 132/71 (91) 95 Room Air I&O- Last 24 Hours up to 6 AM 10/07/19 06:00 Intake Total 150 ml Balance 150 ml Laboratory Data 24H LABS Laboratory Tests 2 10/06/19 20:57: Immature Granulocyte % (Auto) 0.2, Neutrophils (%) (Auto) 80.8H, Lymphocytes (%) (Auto) 7.2L, Monocytes (%) (Auto) 11.6H, Eosinophils (%) (Auto) 0.1, Basophils (%) (Auto) 0.1, Neutrophils # (Auto) 6.8, Lymphocytes # (Auto) 0.6L, Monocytes # (Auto) 1.0H, Eosinophils # (Auto) 0.0, Basophils # (Auto) 0.0, Nucleated Red Blood Cells % (auto) 0.0, Blood Gas Bicarbonate Standard 23.0, Venous Blood pH 7.414, Venous Blood Partial Pressure CO2 36.4L, Venous Blood Partial Pressure O2 44.1, Venous Blood Total Carbon Dioxide 23.9L, Venous Blood HCO3 22.8L, Venous Blood Oxygen Saturation 81.5H, Venous Blood Base Excess -1.4, Lactic Acid Level 2.2*H, Total Bilirubin 0.5, Direct Bilirubin 0.2, Aspartate Amino Transf (AST/SGOT) 24, Alanine Aminotransferase (ALT/SGPT) 23, Alkaline Phosphatase 69, Total Creatine Kinase 81, Creatine Kinase MB 1.0, Creatine Kinase MB Relative Index 1.23, Troponin I < 0.02, HZ-Bxa-R-Type Natriuretic Peptide 1317H, Total Protein 6.6, Albumin 3.2, Albumin/Globulin Ratio 0.94L, Thyroid Stimulating Hormone (TSH) 3.270, Thyroxine (T4) 12.5H 10/06/19 22:01: POC Glucose (Misc Panel) 108H, POC Sodium (Misc Panel) 137, POC Potassium (Misc Panel) 4.0, POC Chloride (Misc Panel) 101, POC Total CO2 (Misc Panel) 28.0H, POC Blood Urea Nitrogen (Misc Panel 23, POC Ionized Calcium (Misc Panel) 4.4L, POC Creatinine (Misc Panel) 1.6H, POC Hematocrit (Misc Panel) 39.0 10/07/19 02:55: Nucleated Red Blood Cells % (auto) 0.0, Lactic Acid Level 1.1, Erythrocyte Sedimentation Rate 56H, Anion Gap 8, Glomerular Filtration Rate 43.2L, Calcium Level 8.2L, C-Reactive Protein, Quantitative 13.00H CBC/BMP Laboratory Tests 10/06/19 20:57 2/4/20 02:55 Microbiology Microbiology 10/07/19 Blood Culture, Received Pending 10/06/19 Blood Culture, Received Pending NUZHAT CASSIDY MD Oct 07, 2019 15:31
[2019-10-07 22:00] VITALS: BP 134/71
[2019-10-07] MEDS ORDERED: VANCOMYCIN HCL 1,000 MG, VIAL MATE ADAPTER 1 EACH in D5W 250 ML IV SCH (22:00)
[2019-10-07] MEDS: ATORVASTATIN 20 MG TAB PO SCH (22:04)
[2019-10-08 06:53] LABS: CALCIUM LEVEL 8.9 MG/DL (8.8-10.2); CREATININE FOR GFR 1.03 MG/DL (0.55-1.30); GLOMERULAR FILTRATION RATE 57.1 (>45); MAGNESIUM LEVEL 1.9 MG/DL (1.8-2.4); PHOSPHORUS LEVEL 3.4 MG/DL (2.5-4.9); POTASSIUM SERUM 3.7 MEQ/L (3.5-5.1)
[2019-10-08 08:00] VITALS: BP 159/69
[2019-10-08] MEDS: POTASSIUM CHLORIDE 10 MEQ SR TABLET PO SCH (08:36)
[2019-10-08] MEDS: TORSEMIDE 20 MG TAB PO SCH (08:37)
[2019-10-08] MEDS: CALCIUM CARBONATE 500 MG CHEW U/D PO SCH ×3 (08:37→21:00)
[2019-10-08] MEDS: ANASTROZOLE 1MG TABLET (PATIENT'S OWN MED) PO SCH (08:38)
[2019-10-08] MEDS: METOPROLOL TART 25 MG TABLET PO SCH ×2 (08:38→21:00)
[2019-10-08] MEDS: DOCUSATE SODIUM 100 MG CAP PO SCH ×3 (09:00→21:00)
[2019-10-08] MEDS: ENOXAPARIN 40 MG/0.4 ML SYRINGE (J1650) SC SCH (09:00)
[2019-10-08] MEDS: ACETAMINOPHEN TAB 650MG DOSE (2X325MG) PO PRN ×2 (10:26→21:00)
[2019-10-08] MEDS ORDERED: POTASSIUM CHLORIDE 10 MEQ SR TABLET PO ONE (11:00)
[2019-10-08] MEDS ORDERED: FUROSEMIDE 40 MG/4 ML VIAL (J1940) IV ONE (13:00)
[2019-10-08 14:00] VITALS: BP 130/50
--- NOTE | 2019-10-08 14:45 | ECGEPIP ---
[facility] - ED Test Date: 2019-10-06 Pat Name: NILESH ELMORE Department: Room: [place] [address] Gender: Female Coordinator Volunteer Services: KELLY : 1955 Requested By: VÍCTOR MORGAN Order Number: [id number] Reading MD: Shea Tan Measurements Intervals [place] Rate: 81 P: 63 MT: 158 QRS: -57 QRSD: 137 T: 63 QT: 429 QTc: 501 Interpretive Statements SINUS RHYTHM RIGHT BUNDLE BRANCH BLOCK LEFT ANTERIOR FASCICULAR BLOCK baseline artifact may affect interpretation INCREASED RATE 06/20/19 Electronically Signed on 10-08-2019 14:44:53 EST by Shea Tan
--- NOTE | 2019-10-08 17:42 | IPNPDOC ---
Date Seen The patient was seen on 10/08/19. Progress Note SUBJECTIVE: 64-year-old female with past medical history of breast cancer, status post resection, coronary artery disease status post stent placement, CHF, and psoriasis is admitted for right lower extremity cellulitis. Patient reports history of recurrent cellulitis, last episode was over a year ago, reports symptoms started a few days ago with swelling, redness of right lower extremity, lotion or Dopplers negative for DVT. Patient has been treated with IV antibiotics, seen in the morning, no complains overnight, no new complaints at this time. She denies any shortness of breath, chest pain, nausea, vomiting, abdominal pain or diarrhea. 10/08/19 Patient comfortable in bed, slight improvement in right lower extremity swelling and pain, no acute events overnight, no complains at this time. 10 point review of system is negative except for above PHYSICAL EXAMINATION: VITAL SIGNS: Please see below. GENERAL: Morbidly obese HEENT: Normocephalic, atraumatic, moist mucous membranes NECK: Supple CARDIOVASCULAR EXAMINATION: S1, S2, no murmurs RESPIRATORY EXAMINATION: Diminished/distant breath sounds, scattered rhonchi, no wheezing ABDOMINAL EXAMINATION: Soft, nontender, nondistended, positive bowel sounds EXTREMITIES: Right lower extremity edema with erythema extending from ankle up to knee, warm and tender to palpation, slightly improved from yesterday. Significant left lower extremity tenderness to palpation SKIN: As above NEUROLOGICAL EXAMINATION: Alert and oriented 3, no focal deficits PSYCHIATRIC EXAMINATION: Calm and cooperative LABORATORY DATA, IMAGING STUDIES, MICROBIOLOGY: Please see below. DVT prophylaxis ordered?: Yes ASSESSMENT AND PLAN: 64-year-old female with multiple medical comorbidities is admitted for right lower extremity cellulitis. PROBLEMS: 1. Right lower extremity cellulitis: Right lower extremity Doppler negative for DVT, continue vancomycin, will monitor for clinical improvement, ordered an additional dose of Lasix 40 mg IV 1 today, we'll get left lower extremity Doppler as well 2. CHF: Continue torsemide 20 mg daily with potassium supplementation. 3. Coronary artery disease: Status post stent placement, continue optimal medical management with aspirin, statin and beta elijah. DVT prophylaxis: Lovenox. GI prophylaxis: Not needed VS, I&O, 24H, Fishbone Vital Signs/I&O Vital Signs Date Time Temp Pulse Resp B/P (MAP) Pulse Ox O2 Delivery O2 Flow Rate FiO2 10/08/19 14:00 98.3 71 24 130/50 (76) 97 Room Air I&O- Last 24 Hours up to 6 AM 10/08/19 06:00 Intake Total 780 ml Balance 780 ml Laboratory Data 24H LABS Laboratory Tests 2 10/08/19 06:20: Anion Gap 7L, Glomerular Filtration Rate 57.1, Estimated Mean Plasma Glucose 126H, Hemoglobin A1c 6.0, Calcium Level 8.9, Phosphorus Level 3.4, Magnesium Level 1.9 10/08/19 16:00: Vancomycin Level Trough 9.9L CBC/BMP Laboratory Tests 10/08/19 06:20 Microbiology Microbiology 10/07/19 Blood Culture - Preliminary, Resulted No growth after 24 hours . All specim... 10/06/19 Blood Culture - Preliminary, Resulted No growth after 24 hours . All specim... NUZHAT CASSIDY MD Oct 08, 2019 17:42
[2019-10-08] MEDS: VANCOMYCIN HCL 1,000 MG, VIAL MATE ADAPTER 1 EACH in D5W 250 ML IV SCH (17:57)
--- NOTE | 2019-10-08 18:06 | REPVR ---
PROCEDURE INFORMATION: Exam: US Duplex Left Lower Extremity Veins, Limited Exam date and time: 10/08/2019 5:48 PM Age: 64 years old Clinical indication: Other: R/O dvt TECHNIQUE: Imaging protocol: Real-time Duplex ultrasound of the Left Lower Extremity with 2-D howell scale, color Doppler flow and spectral waveform analysis with image documentation. Limited exam focused on the left lower extremity veins. COMPARISON: No relevant prior studies available. FINDINGS: Left deep veins: Unremarkable. The common femoral, femoral and popliteal veins are patent without thrombus. Normal compressibility, augmentation response and Doppler waveforms. Left superficial veins: Unremarkable. Saphenofemoral junction is patent without thrombus. Soft tissues: Unremarkable. IMPRESSION: No sonographic evidence of deep vein thrombosis. Electronically signed by: Royer Klein On 10/08/2019 18:05:41 PM
[2019-10-08] MEDS: ATORVASTATIN 20 MG TAB PO SCH (21:00)
[2019-10-08 22:00] VITALS: BP 133/49
[2019-10-09] MEDS: VANCOMYCIN HCL 1,000 MG, VIAL MATE ADAPTER 1 EACH in D5W 250 ML IV SCH (05:09)
[2019-10-09 06:00] VITALS: BP 131/58
[2019-10-09 06:39] LABS: HEMATOCRIT 36.1 % (36.0-47.0); HEMOGLOBIN 11.6 g/dl (12.0-15.5); MEAN CORPUSCULAR HEMOGLOBIN 28.5 pg (27.0-33.0); MEAN CORPUSCULAR HGB CONC 32.1 g/dl (32.0-36.5); MEAN CORPUSCULAR VOLUME 88.7 fl (80.0-96.0); PLATELET COUNT, AUTOMATED 182 10^3/uL (150-450); RED BLOOD COUNT 4.07 10^6/uL (4.00-5.40); WHITE BLOOD COUNT 7.8 10^3/uL (4.0-10.0)
[2019-10-09 07:02] LABS: CALCIUM LEVEL 9.1 MG/DL (8.8-10.2); CREATININE FOR GFR 1.06 MG/DL (0.55-1.30); GLOMERULAR FILTRATION RATE 55.2 (>45); POTASSIUM SERUM 3.6 MEQ/L (3.5-5.1)
[2019-10-09 07:30] VITALS: BP 128/58
[2019-10-09] MEDS: ACETAMINOPHEN TAB 650MG DOSE (2X325MG) PO PRN (08:58)
[2019-10-09 08:59] VITALS: BP 128/58
[2019-10-09] MEDS: METOPROLOL TART 25 MG TABLET PO SCH (08:59)
[2019-10-09] MEDS: POTASSIUM CHLORIDE 10 MEQ SR TABLET PO SCH (08:59)
[2019-10-09] MEDS: DOCUSATE SODIUM 100 MG CAP PO SCH (09:00)
[2019-10-09] MEDS: ENOXAPARIN 40 MG/0.4 ML SYRINGE (J1650) SC SCH (09:00)
[2019-10-09] MEDS: CALCIUM CARBONATE 500 MG CHEW U/D PO SCH (09:00)
[2019-10-09] MEDS: TORSEMIDE 20 MG TAB PO SCH (09:00)
[2019-10-09] MEDS: ANASTROZOLE 1MG TABLET (PATIENT'S OWN MED) PO SCH (09:01)
[2019-10-09 10:20] VITALS: BP 131/57
[2019-10-09] MEDS ORDERED: BACT400T PO (12:31)
[2019-10-09] MEDS ORDERED: POTASSIUM CHLORIDE 10 MEQ SR TABLET PO ONE (13:00)
[2019-10-09 14:00] VITALS: BP 148/60
--- NOTE | 2019-10-09 18:04 | DS.PDOC ---
Discharge Summary General Date of Admission Oct 06, 2019 at 23:42 Date of Discharge 10/09/19 Attending Physician: NUZHAT CASSIDY MD Discharge Summary PROCEDURES PERFORMED DURING STAY: None. ADMITTING DIAGNOSES: 1. Right lower extremity cellulitis. DISCHARGE DIAGNOSES: 1. Right lower extremity cellulitis. COMPLICATIONS/CHIEF COMPLAINT: Cellulitis Of Leg. HISTORY OF PRESENT ILLNESS: 64-year-old female was admitted for right lower extremity cellulitis. She was treated with vancomycin with good response, lower extremity Doppler was negative for DVT. Patient has been clinically stable for discharge with completion of antibiotics by mouth. Patient will be discharged on Bactrim to complete her regimen. Patient is clinically and hemodynamically stable for discharge and outpatient follow-up. HOSPITAL COURSE: As above. DISCHARGE MEDICATIONS: Please see below. ALLERGIES: Please see below. PHYSICAL EXAMINATION: VITAL SIGNS: Please see below. GENERAL: Morbidly obese HEENT: Normocephalic, atraumatic, moist mucous membranes NECK: Supple CARDIOVASCULAR EXAMINATION: S1, S2, no murmurs RESPIRATORY EXAMINATION: Diminished/distant breath sounds, scattered rhonchi, no wheezing ABDOMINAL EXAMINATION: Soft, nontender, nondistended, positive bowel sounds EXTREMITIES: Right lower extremity edema with erythema extending from ankle up to knee, warm and tender to palpation, significantly improved from admission. SKIN: As above NEUROLOGICAL EXAMINATION: Alert and oriented 3, no focal deficits PSYCHIATRIC EXAMINATION: Calm and cooperative LABORATORY DATA: Please see below. IMAGING: Lower extremity Doppler Negative for DVT PROGNOSIS: Fair ACTIVITY: As tolerated. DIET: Cardiac with consistent carbs DISCHARGE PLAN: Follow with PCP within 1-2 weeks DISPOSITION: 01 Home, Self-Care. DISCHARGE INSTRUCTIONS: 1. As above. DISCHARGE CONDITION: Stable. TIME SPENT ON DISCHARGE: Greater than 26 minutes. Vital Signs/I&Os Vital Signs Date Time Temp Pulse Resp B/P (MAP) Pulse Ox O2 Delivery O2 Flow Rate FiO2 10/09/19 14:00 97.9 70 20 148/60 (89) 97 Room Air I&O- Last 24 Hours up to 6 AM 10/09/19 06:00 Intake Total 1880 ml Output Total 0 ml Balance 1880 ml Laboratory Data Labs 24H Laboratory Tests 2 10/09/19 06:23: Nucleated Red Blood Cells % (auto) 0.0, Anion Gap 6L, Glomerular Filtration Rate 55.2, Calcium Level 9.1 CBC/BMP Laboratory Tests 10/09/19 06:23 Microbiology Microbiology 10/07/19 Blood Culture - Preliminary, Resulted No Growth after 48 hours. All Specime... 10/06/19 Blood Culture - Preliminary, Resulted No Growth after 48 hours. All Specime... Discharge Medications Scheduled Anastrozole (Anastrozole) 1 Mg Tablet, 1 TAB PO DAILY Aspirin (Aspirin EC) 325 Mg Tablet.dr, 325 MG PO DAILY, (Reported) Atorvastatin Calcium (Atorvastatin Calcium) 20 Mg Tablet, 20 MG PO QPM, (Reported) TAKES AROUND 1900: AFTER DINNER Calcium Carbonate/Vitamin D3 (Calcium 600 + Vit D Tablet) 1 Each Tablet, 2 TAB PO QPM, (Reported) TAKES AROUND 1900: AFTER DINNER Metoprolol Tartrate (Metoprolol Tartrate) 25 Mg Tablet, 25 MG PO BID, (Reported) Multivitamins (Thera M Plus Tablet) 1 Each Tablet, 1 TAB PO DAILY, (Reported) Omeprazole (Omeprazole) 40 Mg Capsule.dr, 40 MG PO QPM, (Reported) TAKES AROUND 1900: AFTER DINNER Potassium Chloride (Potassium Chloride) 10 Meq Tab.er.prt, 20 MEQ PO DAILY, (Reported) Sulfamethoxazole/Trimethoprim (Bactrim 400-80 mg Tablet) 1 Each Tablet, 1 TAB PO BID Torsemide (Torsemide) 20 Mg Tablet, 20 MG PO DAILY, (Reported) Allergies Coded Allergies: Cephalosporins (Verified Allergy, Unknown, 06/20/19) swelling Penicillins (Verified Allergy, Unknown, 06/20/19) ciprofloxacin (Verified Allergy, Unknown, 06/20/19) swelling NUZHAT CASSIDY MD Oct 09, 2019 18:04
== END 2019-10-09 16:30 | disposition home or self-care (01) | DRG 603 ==
LOC: EDBD 20:17 → M ED 20:17 → M ED INP 23:42 → ENRESERV 23:57 → M MS5PR 10-07 01:35
PROVIDERS: ADMIT Internal Medicine; ATTEND Internal Medicine
DX: L03.115 Cellulitis of right lower limb (principal); Z68.42 Body mass index [BMI] 45.0-49.9, adult; I25.10 Atherosclerotic heart disease of native coronary artery without angina pectoris; I50.9 Heart failure, unspecified; L40.9 Psoriasis, unspecified; G47.33 Obstructive sleep apnea (adult) (pediatric); R26.81 Unsteadiness on feet; R41.3 Other amnesia; Z87.891 Personal history of nicotine dependence; Z85.3 Personal history of malignant neoplasm of breast; E66.01 Morbid (severe) obesity due to excess calories; Z79.82 Long term (current) use of aspirin; Z79.899 Other long term (current) drug therapy; Z88.0 Allergy status to penicillin; Z88.1 Allergy status to other antibiotic agents; Z95.5 Presence of coronary angioplasty implant and graft

== ENCOUNTER → 2019-11-07 | Outpatient (CLI) | payer MEDICARE ==
[~2019-11-07] MED LIST changes: +ASPI325T41 PO; +BACT400T PO; +CALC600T66 PO; +METO25TA4 PO; +POTA10TA17 PO; +VITMTA PO
--- NOTE | 2019-11-07 11:57 | REP ---
ULTRASOUND ABDOMEN: Real-time sonographic evaluation of abdomen performed. Gallbladder demonstrates no evidence of intraluminal sludge or calculi, wall thickening, or pericholecystic fluid. There is no intrahepatic or extrahepatic biliary dilatation, common bile duct measuring 4 mm. The liver and pancreas are grossly unremarkable. Pancreas is not optimally seen due to overlying bowel gas and patient body habitus. Spleen is normal in size measuring 7.7 x 7.6 x 4.1 cm, with no intrinsic abnormality. Kidneys are normal in size and echotexture, right kidney measuring 9.6 x 4.9 x 4.4 cm and left kidney 10.2 x 4.5 x 4.9 cm. There is no mass, hydronephrosis, or nephrolithiasis. Abdominal aorta is not visualized due to overlying bowel gas. No ascites is seen. IMPRESSION: Essentially negative abdominal ultrasound. Study is somewhat limited due to patient body habitus and bowel gas. Electronically Signed by Lino Feliz MD 11/11/2019 03:28 P
== END ==
LOC: M RAD 09:26
PROVIDERS: ATTEND Internal Medicine Hematology & Oncology
DX: D69.6 Thrombocytopenia, unspecified (principal); R93.9 Diagnostic imaging inconclusive due to excess body fat of patient

== ENCOUNTER → 2020-08-20 | Outpatient (CLI) | payer MEDICARE ==
[~2020-08-20] MED LIST changes: -ASPI-261 PO; +ASPI-559 PO; -CALC600T5 PO; +CALC600T61 PO
--- NOTE | 2020-08-20 09:31 | REP ---
INDICATION: PSORIASIS VULGARIS. COMPARISON: Portable chest dated 10/06/2019 and PA and lateral chest dated 02/28/2019. TECHNIQUE: Upright PA and lateral chest. FINDINGS: The lung liriano are clear. The cardiac size is normal. The jak, mediastinum, and skeletal structures are unremarkable and unchanged. There are tiny surgical clips inferolaterally on the left as an interval change, possibly within the left breast. IMPRESSION: Essentially negative PA and lateral chest. There is no significant interval change except that tiny surgical clips are now noted inferolaterally on the left, possibly within the left breast. <Electronically signed by Lino Colon > 08/20/20 [id number]
== END ==
LOC: M RAD 08:31
PROVIDERS: ATTEND Nurse Practitioner Family
DX: L40.0 Psoriasis vulgaris (principal)

== ENCOUNTER → 2020-12-07 | Outpatient (CLI) | payer MEDICARE ==
[~2020-12-07] MED LIST changes: -ASPI-559 PO; +ASPI325T3 PO
--- NOTE | 2020-12-07 13:48 | DEXAMM ---
INDICATION: ON AROMATASE INHIBITOR. COMPARISON: 02/06/2019. TECHNIQUE: Bone density was measured using dual-energy x-ray absorptiometry (DEXA). FINDINGS: AP SPINE L1-L4 BMD 1.021 g/cm2 Young Adult T-Score -1.4 Age Matched Z-Score 0.2. LT FEMUR, TOTAL BMD 0.683 g/cm2 Young Adult T-Score -2.6 Age Matched Z-Score -1.3. LT NECK BMD 0.608 g/cm2 Young Adult T-Score -3.1 Age Matched Z-Score -1.5. RT FEMUR, TOTAL BMD 0.694 g/cm2 Young Adult T-Score -2.5 Age Matched Z-Score -1.2. RT NECK BMD 0.583 g/cm2 Young Adult T-Score -3.3 Age Matched Z-Score -1.7. IMPRESSION: There is low bone density of the spine. There is osteoporosis of the left hip. There is osteoporosis of the right hip. The density of the spine has increased 4.5% since the initial exam on 02/05/2019. The density of the left hip has decreased 5.3% since initial exam on 02/05/2019. The density of the right hip has decreased 5.1% since the initial exam on 02/05/2019. FOLLOW-UP: Recommendation for the next bone density exam: 2 years. <Electronically signed by Lino Feliz > 12/07/20 [id number]
== END ==
LOC: M WHC 12:52
PROVIDERS: ATTEND Internal Medicine Hematology & Oncology
DX: M85.89 Other specified disorders of bone density and structure, multiple sites (principal); Z79.811 Long term (current) use of aromatase inhibitors

== ENCOUNTER 2021-03-23 16:25 | Emergency (ER) | payer MEDICARE ==
[~2021-03-23] VITALS: Ht 154.9 cm; Wt 106.8 kg
[2021-03-23 16:37] VITALS: BP 146/65
[2021-03-23] MEDS ORDERED: RISA150S2 SQ (16:43)
--- NOTE | 2021-03-23 17:34 | REP ---
INDICATION: FALL INJURY. COMPARISON: None. TECHNIQUE: Four views of the left knee are provided. FINDINGS: Four views of the left knee demonstrate diffuse osteopenia. There is osteoarthritic spurring and mild joint space narrowing in the medial compartment. Patellofemoral spurring and joint space narrowing is also seen. There is non articular spurring on the superior pole the patella.. No fracture or subluxation is seen. No opaque foreign body noted. IMPRESSION: No fracture noted. Medial and patellofemoral compartment osteoarthritis. Diffuse osteopenia.. <Electronically signed by Vidal Kenyon > 03/23/21 [id number]
== END 2021-03-23 18:15 | disposition home or self-care (01) ==
LOC: M ED 16:25
DX: S80.02XA Contusion of left knee, initial encounter (principal); V53.4XXA Person boarding or alighting a pick-up truck or van injured in collision with car, pick-up truck or van, initial encounter; Y92.018 Other place in single-family (private) house as the place of occurrence of the external cause; I10 Essential (primary) hypertension; K21.9 Gastro-esophageal reflux disease without esophagitis; Z79.899 Other long term (current) drug therapy; Z79.82 Long term (current) use of aspirin; Z88.0 Allergy status to penicillin; Z88.1 Allergy status to other antibiotic agents

== ENCOUNTER → 2021-07-27 | Outpatient (CLI) | payer MEDICARE ==
[~2021-07-27] MED LIST changes: +ASPI-584 PO; -ASPI325T3 PO; -KLOR10TA76 PO; +POTA-136 PO; +RISA150S2 SQ; +TAMO20TA8 PO
--- NOTE | 2021-07-27 10:49 | REP ---
INDICATION: PSORIASIS VULGARIS PT NEEDS LABS AFTER XR COMPARISON: 08/20/2020 TECHNIQUE: PA and lateral. FINDINGS: The mediastinum and cardiac silhouette are normal. The lung liriano are clear and without acute consolidation, effusion, or pneumothorax. Surgical clips overlie the left lower lung zone. The skeletal structures are intact and normal. IMPRESSION: No acute cardiopulmonary process. <Electronically signed by Bereket Mora > 07/27/21 [id number]
[2021-07-27 12:33] LABS: ALBUMIN 3.2 GM/DL (3.2-5.2); ALT/SGPT 23 U/L (12-78); BILIRUBIN,DIRECT 0.2 MG/DL (0.0-0.2); BILIRUBIN,TOTAL 0.4 MG/DL (0.2-1.0); BLOOD UREA NITROGEN 18 MG/DL (7-18); CALCIUM LEVEL 9.3 MG/DL (8.8-10.2); CARBON DIOXIDE LEVEL 27 MEQ/L (21-32); CHLORIDE LEVEL 108 MEQ/L (98-107); CREATININE FOR GFR 1.41 MG/DL (0.55-1.30); GLOMERULAR FILTRATION RATE 39.5 (>45); GLUCOSE, FASTING 118 MG/DL (70-100); POTASSIUM SERUM 4.6 MEQ/L (3.5-5.1); SODIUM LEVEL 142 MEQ/L (136-145); TOTAL PROTEIN 6.6 GM/DL (6.4-8.2)
[2021-07-27 12:55] LABS: HIV 1&2 SCREEN CENTAUR NEGATIVE (NEGATIVE)
[2021-07-29 00:11] LABS: HBV HBV DNA not detected IU/mL (.)
== END ==
LOC: M LAB 10:04
PROVIDERS: ATTEND Family Medicine
DX: L40.0 Psoriasis vulgaris (principal)

== ENCOUNTER → 2021-08-13 | Outpatient (CLI) | payer MEDICARE ==
[~2021-08-13] MED LIST changes: +CALC600C3 PO; +ELIQ5TAB PO; -OMEP-221 PO; +OMEP40CA5 PO
== END ==
LOC: M LABSMTC 10:17
PROVIDERS: ATTEND Anesthesiology
DX: Z01.818 Encounter for other preprocedural examination (principal); Z11.52 Encounter for screening for COVID-19

== ENCOUNTER 2021-08-18 12:52 | Day surgery (SDC) | payer MEDICARE ==
[~2021-08-18] VITALS: Ht 154.9 cm; Wt 103.1 kg
[~2021-08-18 12:52] MED LIST changes: -CALC600C3 PO; +DUOVISC (0.50ML VISCOAT/0.85ML PROVISC) OPHTH KIT As Ordered ONE; -ELIQ5TAB PO; +LIDOCAINE 1% SDV 5ML VIAL As Ordered ONE; +LR 1,000 ML IV SCH; +MAXITROL OPHTH SUSP 5 ML As Ordered ONE; +OMEP-221 PO; -OMEP40CA5 PO; +PHENYLEPHRINE HCL 10 % OPHTH. SOL 5ML OS ONE
[2021-08-18] MEDS ORDERED: MIDAZOLAM INJ 2MG/2ML VIAL (J2250 PER 1MG) As Ordered ONE (13:21)
[2021-08-18] MEDS ORDERED: fentaNYL 100 MCG/2 ML INJECTION (J3010) As Ordered ONE (13:21)
[2021-08-18] MEDS: TETRACAINE 0.5% OPHTH SOLN 4ML OS SCH ×2 (13:32→13:34)
[2021-08-18] MEDS: PHENYLEPHRINE 2.5% OPHTH SOL 2ML OS SCH ×2 (13:34→13:56)
[2021-08-18] MEDS: FLURBIPROFEN 0.03% OPHTH SOLN 2.5 ML OS SCH ×2 (13:34→13:56)
[2021-08-18] MEDS: CYCLOPENTOLATE 1% OPHTH SOLN 2 ML BTL OS SCH ×2 (13:34→13:56)
[2021-08-18] MEDS ORDERED: ACETYLCHOLINE OPHTH SOLN 1% 2ML (MIOCHOL-E) As Ordered ONE (14:45)
[2021-08-18 14:50] VITALS: BP 136/57
--- NOTE | 2021-08-18 15:49 | ROOPDOC ---
[facility] Report Of Operation Report of Operation DATE OF PROCEDURE: 08/18/21 PREPROCEDURE DIAGNOSES: Cataract left eye. POSTPROCEDURE DIAGNOSES: Same. PROCEDURE PERFORMED: Cataract extraction with intraocular lens implantation left eye. SURGEON: Josr Medina MD COLOR MAKER FORMULATOR: None ANESTHESIA: Local ESTIMATED BLOOD LOSS: None. COMPLICATIONS: None. SPECIMENS REMOVED: None DESCRIPTION OF PROCEDURE: The patient was brought to the operating room and prepped and draped in the usual sterile fashion and an eyelid speculum was inserted in the left eye. A paracentesis was made and the anterior chamber was inflated with non-preserved lidocaine. This was followed by injection of Viscoat. A groove was made in the superotemporal clear cornea which was tunneled forward with the crescent blade and the anterior chamber was entered with a 2.75 keratome. The cystotome was used to make an incision in the center of the capsule and a continuous curvilinear capsulorhexis was created. The lens was hydrodissected until it was found to rotate freely within the capsular bag. Phacoemulsification was then used to remove the lens in its entirety. Irrigation and aspiration were used to remove residual cortical material. The anterior chamber and capsular bag were reinflated with Provisc and a 16.0 diopter SN60AT lens was injected into the capsular bag using the Meeker injector. The lens was dialed into place using the Sinskey hook. Irrigation and aspiration were used to remove residual viscoelastic. The wound was stromally hydrated until it was found to be watertight and the eye was at an appropriate pressure. Of note, there was significant pupillary constriction at the end of the case. The eyelid speculum was removed from the eye and Maxitrol drops were placed over the left eye. The patient was transferred to the recovery room in stable condition and will follow up tomorrow. The total CDE was 20.87 JOSR MEDINA MD Aug 18, 2021 15:49
== END 2021-08-18 15:17 | disposition home or self-care (01) ==
LOC: M SDC 12:52
PROVIDERS: ATTEND Ophthalmology
DX: H25.9 Unspecified age-related cataract (principal); H57.03 Miosis; K21.9 Gastro-esophageal reflux disease without esophagitis; L40.9 Psoriasis, unspecified; M19.90 Unspecified osteoarthritis, unspecified site; C50.012 Malignant neoplasm of nipple and areola, left female breast; I11.9 Hypertensive heart disease without heart failure; I25.10 Atherosclerotic heart disease of native coronary artery without angina pectoris; Z95.5 Presence of coronary angioplasty implant and graft; E78.5 Hyperlipidemia, unspecified; R94.31 Abnormal electrocardiogram [ECG] [EKG]; M81.0 Age-related osteoporosis without current pathological fracture; K76.9 Liver disease, unspecified; Z79.899 Other long term (current) drug therapy; Z79.82 Long term (current) use of aspirin; Z88.0 Allergy status to penicillin; Z88.1 Allergy status to other antibiotic agents; Z87.891 Personal history of nicotine dependence; Z92.3 Personal history of irradiation
CPT/HCPCS: 66984; J2250; J3010; V2632

== ENCOUNTER 2021-08-23 12:29 | Emergency (ER) | payer MEDICARE ==
[~2021-08-23] VITALS: Ht 152.4 cm; Wt 102.3 kg
[~2021-08-23 12:29] MED LIST changes: -DUOVISC (0.50ML VISCOAT/0.85ML PROVISC) OPHTH KIT As Ordered ONE; -LIDOCAINE 1% SDV 5ML VIAL As Ordered ONE; -LR 1,000 ML IV SCH; -MAXITROL OPHTH SUSP 5 ML As Ordered ONE; -PHENYLEPHRINE HCL 10 % OPHTH. SOL 5ML OS ONE
[2021-08-23] MEDS ORDERED: ASPIRIN 81 MG CHEW TABLET PO ONE (12:45)
[2021-08-23] MEDS ORDERED: NITROGLYCERIN 0.4 MG SUBL TABLET SL PRN (12:45)
[2021-08-23 13:08] VITALS: BP 111/69
[2021-08-23 13:15] LABS: BASO # 0.1 10^3/uL (0.0-0.2); BASO % 0.6 % (0.0-1.0); EOS # 0.2 10^3/uL (0.0-0.5); EOS % 2.6 % (0.0-3.0); HEMATOCRIT 43.9 % (36.0-47.0); HEMOGLOBIN 14.3 g/dl (12.0-15.5); LYMPH % 11.6 % (24.0-44.0); MEAN CORPUSCULAR HEMOGLOBIN 29.5 pg (27.0-33.0); MEAN CORPUSCULAR HGB CONC 32.6 g/dl (32.0-36.5); MEAN CORPUSCULAR VOLUME 90.7 fl (80.0-96.0); MONO # 0.6 10^3/uL (0.0-0.8); MONO % 6.8 % (2.0-8.0); NEUTROPHILS # 6.5 10^3/uL (1.5-8.5); NEUTROPHILS % 77.9 % (36.0-66.0); PLATELET COUNT, AUTOMATED 158 10^3/uL (150-450); RED BLOOD COUNT 4.84 10^6/uL (4.00-5.40); WHITE BLOOD COUNT 8.4 10^3/uL (4.0-10.0)
--- NOTE | 2021-08-23 13:26 | REP ---
INDICATION: CHEST PAIN COMPARISON: 07/27/2021 TECHNIQUE: Portable AP view of the chest FINDINGS: The mediastinum and cardiac silhouette are stable and within normal limits for portable technique. The lung liriano are clear without acute consolidation, effusion, or pneumothorax. Skeletal structures are intact. IMPRESSION: No acute cardiopulmonary process appreciated. <Electronically signed by Bereket Mora > 08/23/21 [id number]
[2021-08-23 13:40] LABS: ALBUMIN 3.3 GM/DL (3.2-5.2); BILIRUBIN,DIRECT 0.2 MG/DL (0.0-0.2); BILIRUBIN,TOTAL 0.6 MG/DL (0.2-1.0); CALCIUM LEVEL 9.1 MG/DL (8.8-10.2); CREATININE FOR GFR 1.25 MG/DL (0.55-1.30); GLOMERULAR FILTRATION RATE 45.4 (>45); POTASSIUM SERUM 4.1 MEQ/L (3.5-5.1); TOTAL PROTEIN 6.4 GM/DL (6.4-8.2)
[2021-08-23 13:49] LABS: INR 0.99; PARTIAL THROMBOPLASTIN TIME 28.4 SECONDS (25.9-37.0); PROTHROMBIN TIME 13.5 SECONDS (12.7-14.5)
[2021-08-23 13:50] LABS: CK-MB VALUE MASS 2.5 NG/ML (<3.6); MB/CK RELATIVE INDEX 4.39 (< OR =4)
[2021-08-23 13:56] LABS: RSV AMPLIFICATION NEGATIVE (NEGATIVE)
[2021-08-23] MEDS ORDERED: HEPARIN DRIP 25,000 UNITS in IV 1 EA IV SCH (14:05)
[2021-08-23] MEDS ORDERED: HEPARIN SOD (PORCINE) 5000UNITS/ML 1ML VIAL/SYRINGE IV ONE (14:05)
[2021-08-23 15:40] VITALS: BP 133/86
--- NOTE | 2021-08-23 19:31 | ECGEPIP ---
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
== END 2021-08-23 15:45 | disposition short-term general hospital (02) ==
LOC: M ED 12:29
DX: I21.4 Non-ST elevation (NSTEMI) myocardial infarction (principal); I10 Essential (primary) hypertension; J44.9 Chronic obstructive pulmonary disease, unspecified; E78.5 Hyperlipidemia, unspecified; Z95.5 Presence of coronary angioplasty implant and graft; Z88.0 Allergy status to penicillin; Z88.1 Allergy status to other antibiotic agents; Z79.899 Other long term (current) drug therapy; Z79.82 Long term (current) use of aspirin
CPT/HCPCS: 71045; 80048; 80076; 82550; 82553; 83690; 83880; 84484; 85025; 85610; 85730; 87631; 93005; 93041; 94760; 96365; 99285; J1644

== ENCOUNTER → 2021-10-08 | Outpatient (CLI) | payer MEDICARE ==
[~2021-10-08] MED LIST changes: +CALC600C3 PO; +ELIQ5TAB PO; -OMEP-221 PO; +OMEP40CA5 PO
== END ==
LOC: M LABSMTC 11:09
PROVIDERS: ATTEND Anesthesiology
DX: Z01.812 Encounter for preprocedural laboratory examination (principal); Z11.52 Encounter for screening for COVID-19

== ENCOUNTER 2021-10-13 07:11 | Day surgery (SDC) | payer MEDICARE ==
[~2021-10-13] VITALS: Ht 154.9 cm; Wt 102.5 kg
[~2021-10-13 07:11] MED LIST changes: +CYCLOPENTOLATE 1% OPHTH SOLN 2 ML BTL OD SCH; +FLURBIPROFEN 0.03% OPHTH SOLN 2.5 ML OD SCH; +LIDOCAINE 1% SDV 5ML VIAL As Ordered ONE; +LR 1,000 ML IV SCH; +MAXITROL OPHTH SUSP 5 ML As Ordered ONE; +PHENYLEPHRINE 2.5% OPHTH SOL 2ML OD SCH; +PHENYLEPHRINE HCL 10 % OPHTH. SOL 5ML OD ONE; +TETRACAINE 0.5% OPHTH SOLN 4ML OD SCH
[2021-10-13] MEDS ORDERED: MIDAZOLAM INJ 2MG/2ML VIAL (J2250 PER 1MG) As Ordered ONE (07:21)
[2021-10-13] MEDS ORDERED: fentaNYL 100 MCG/2 ML INJECTION As Ordered ONE (07:21)
[2021-10-13 10:35] VITALS: BP 138/67
== END 2021-10-13 10:50 | disposition home or self-care (01) ==
LOC: M SDC 07:11
PROVIDERS: ATTEND Ophthalmology
DX: H25.11 Age-related nuclear cataract, right eye (principal); I11.9 Hypertensive heart disease without heart failure; E11.9 Type 2 diabetes mellitus without complications; E78.5 Hyperlipidemia, unspecified; L40.9 Psoriasis, unspecified; I25.2 Old myocardial infarction; Z86.711 Personal history of pulmonary embolism; I25.10 Atherosclerotic heart disease of native coronary artery without angina pectoris; Z85.3 Personal history of malignant neoplasm of breast; Z88.0 Allergy status to penicillin; Z88.1 Allergy status to other antibiotic agents; Z79.82 Long term (current) use of aspirin; Z79.899 Other long term (current) drug therapy; Z79.01 Long term (current) use of anticoagulants
CPT/HCPCS: 66984; J2250; J3010; V2632

== ENCOUNTER → 2022-01-31 | Outpatient (RCR) | payer MEDICARE ==
[~2022-01-31] MED LIST changes: +ALEN70TA82 PO; +COSE1INJ SC; -CYCLOPENTOLATE 1% OPHTH SOLN 2 ML BTL OD SCH; -FLURBIPROFEN 0.03% OPHTH SOLN 2.5 ML OD SCH; -LIDOCAINE 1% SDV 5ML VIAL As Ordered ONE; -LR 1,000 ML IV SCH; -MAXITROL OPHTH SUSP 5 ML As Ordered ONE; -PHENYLEPHRINE 2.5% OPHTH SOL 2ML OD SCH; -PHENYLEPHRINE HCL 10 % OPHTH. SOL 5ML OD ONE; -TETRACAINE 0.5% OPHTH SOLN 4ML OD SCH
== END ==
LOC: M PT 01-17 10:33
PROVIDERS: ATTEND Family Medicine
DX: M62.81 Muscle weakness (generalized) (principal); R26.9 Unspecified abnormalities of gait and mobility